=== PATIENT | male | born 1970 | race African-American/Black ===

== ENCOUNTER 2018-11-24 06:49 | Emergency (ER) | payer SELFPAY ==
[2018-11-24 07:02] VITALS: BP 176/88
[2018-11-24] MEDS ORDERED: NORMAL SALINE 1000 ML 1,000 ML IV ONE (09:54)
[2018-11-24] MEDS ORDERED: ONDANSETRON HCL INJ/PF 4 MG/2 ML SDV IV ONE (09:54)
[2018-11-24] MEDS ORDERED: KETOROLAC TROMETHAMINE INJ/PF 30 MG/1 ML SDV IV ONE (09:54)
[2018-11-24] MEDS ORDERED: CLONIDINE 0.1 MG/24 HR PATCH.TDWK TD ONE (09:54)
--- NOTE | 2018-11-24 10:37 | ER Document Report ---
Doctor's Note Notes: 11/24/18 10:36 Patient presented to the emergency department for evaluation. I had multiple complex medical's patients at the time. I did receive report from the nurse that the patient was illegally obtaining Suboxone, was suffering from withdrawal symptoms. I did review this patient's vital signs. Given this information I did place orders for some medications to help him with symptoms. I was notified shortly after this by nursing that the patient had left the room. He did not receive any medications. I did not personally interview, evaluate, or examined this patient in any way.
== END 2018-11-24 10:34 | disposition left against medical advice (07) ==
LOC: ER 06:49
DX: Z53.21 Procedure and treatment not carried out due to patient leaving prior to being seen by health care provider (principal)